=== PATIENT | male | born 1970 | race Caucasian/White ===

== ENCOUNTER → 2020-04-22 | Outpatient (CLI) | payer OTHER ==
[~2020-04-22] MED LIST: NORCO 10-325 T1 EACH PO; NORVASC5 MG PO; OXYBUTYNIN CHLOR5 MG PO; TYLENOL # 31 EA PO
== END ==
LOC: RAD 17:10
PROVIDERS: ATTEND Internal Medicine Gastroenterology
DX: K59.00 Constipation, unspecified (principal); N20.0 Calculus of kidney
CPT/HCPCS: 74018

== ENCOUNTER → 2020-05-04 | Day surgery (SDC) | payer OTHER ==
[~2020-05-04] MED LIST changes: +HYOSCYAMINE SULFATE 0.5 MG/ML INJ ONE; +LOSARTAN POTASS50 MG PO; +MOTEGRITY PO; +ULTRAM50 MG PO
[2020-05-04 15:55] VITALS: BP 113/73
== END | disposition home or self-care (01) ==
LOC: OR 12:22
PROVIDERS: ATTEND Internal Medicine Gastroenterology
DX: K58.1 Irritable bowel syndrome with constipation (principal); K63.5 Polyp of colon; D18.03 Hemangioma of intra-abdominal structures; K64.8 Other hemorrhoids; K59.09 Other constipation; I10 Essential (primary) hypertension; M54.9 Dorsalgia, unspecified; E78.5 Hyperlipidemia, unspecified; N20.0 Calculus of kidney; F17.290 Nicotine dependence, other tobacco product, uncomplicated; Z01.810 Encounter for preprocedural cardiovascular examination; Z01.812 Encounter for preprocedural laboratory examination; Z20.822 Contact with and (suspected) exposure to COVID-19; Z68.36 Body mass index [BMI] 36.0-36.9, adult
CPT/HCPCS: 45380; 45384; 93005; J1980; U0002

== ENCOUNTER 2020-05-06 04:00 | Emergency (ER) | payer OTHER ==
[~2020-05-06] VITALS: Ht 175.3 cm; Wt 102.1 kg
[~2020-05-06 04:00] MED LIST changes: -HYOSCYAMINE SULFATE 0.5 MG/ML INJ ONE; -ULTRAM50 MG PO
[2020-05-06 04:45] LABS: BASOPHILS % 0.6 % (0.0-1.0); EOSINOPHILS # (AUTO) 0.4 (0.0-0.4); EOSINOPHILS % 5.4 % (0.0-6.0); HEMATOCRIT 44.9 % (38.2-49.6); HEMOGLOBIN 14.9 g/dL (14.0-18.0); LYMPHOCYTES # (AUTO) 2.9 (1.0-3.2); LYMPHOCYTES % 45.2 % (18.0-39.1); MEAN CORPUSCULAR HEMOGLOBIN 29.7 pg (28-32); MEAN CORPUSCULAR HGB CONC 33.2 g/dL (31-35); MEAN CORPUSCULAR VOLUME 89.4 fL (81-99); MONOCYTES # (AUTO) 0.5 (0.2-0.8); MONOCYTES % 6.9 % (4.4-11.3); NEUTROPHILS # (AUTO) 2.7 (2.1-6.9); NEUTROPHILS % 41.7 % (38.7-80.0); PLATELET COUNT 278 x10e3/uL (140-360); RED BLOOD COUNT 5.02 x10e6/uL (4.3-5.7); RED CELL DISTRIBUTION WIDTH 12.3 % (11.7-14.4)
[2020-05-06 04:46] LABS: CLARITY,URINE CLEAR (CLEAR); COLOR,URINE YELLOW (YELLOW); KETONES,URINE NEGATIVE (NEGATIVE); LEUKOCYTE ESTERASE ,URINE NEGATIVE (NEGATIVE); NITRITE,URINE NEGATIVE (NEGATIVE); PROTEIN,URINE DIPSTICK NEGATIVE (NEGATIVE); URINE UROBILINOGEN 0.2 mg/dL (0.2 - 1)
[2020-05-06] MEDS ORDERED: DIATRIZOATE MEGL/DIATRIZOA SOD 30 ML BTL PO ONE (04:55)
[2020-05-06 04:57] LABS: BACTERIA,URINE FEW /HPF; EPITHELIAL CELLS,URINE RARE /LPF; WBC,URINE (MAN) 0-5 /HPF (0-5)
[2020-05-06 05:00] LABS: AMYLASE 48 U/L (25-125); LIPASE 42 U/L (8-78)
[2020-05-06 05:02] LABS: ALANINE AMINOTRANSFERASE 43 IU/L (0-55); ALBUMIN 3.9 g/dL (3.5-5.0); ALBUMIN/GLOBULIN RATIO 1.2 (0.8-2.0); ALKALINE PHOSPHATASE 74 IU/L (40-150); BLOOD UREA NITROGEN 16 mg/dL (7-26); BUN/CREATININE RATIO 16 (6-25); CALCIUM 9.2 mg/dL (8.4-10.2); CARBON DIOXIDE 25 mmol/L (22-29); CHLORIDE 106 mmol/L (98-107); EST GLOMERULAR FILTRATION RATE > 60 ML/MIN (60-); GLUCOSE 116 mg/dL (74-118); SODIUM 141 mmol/L (136-145)
[2020-05-06] MEDS ORDERED: SODIUM CHLORIDE 0.9% 50ML 50 ML ONE (05:20)
[2020-05-06] MEDS ORDERED: IOPAMIDOL 370 MG/ML 200 ML INFUS..BTL INJ ONE (05:21)
[2020-05-06] MEDS ORDERED: ULTRAM50 MG PO ×2 (05:55→06:07)
[2020-05-06 06:17] VITALS: BP 131/86
== END 2020-05-06 06:16 | disposition home or self-care (01) ==
LOC: ER 04:25
DX: R10.33 Periumbilical pain (principal); R16.0 Hepatomegaly, not elsewhere classified; N20.0 Calculus of kidney; I10 Essential (primary) hypertension; M19.90 Unspecified osteoarthritis, unspecified site
CPT/HCPCS: 36415; 74177; 80053; 81001; 82150; 83690; 85025; 99284; Q9967

== ENCOUNTER 2024-04-15 17:45 | Inpatient (IN) | payer BC ==
[~2024-04-15] VITALS: Ht 172.7 cm; Wt 104.3 kg
[2024-04-15] VITALS (9 sets, daily range): BP systolic 153–173; BP diastolic 98–117; PULSE 81–88; RESP 16–18; TEMP 98.1–98.2; O2SAT 97–100
[~2024-04-15 17:45] MED LIST changes: +ULTRAM50 MG PO
[2024-04-15 18:12] LABS: BASOPHILS % 0.3 % (0.0-1.0); EOSINOPHILS # (AUTO) 0.3 (0.0-0.4); EOSINOPHILS % 4.1 % (0.0-6.0); HEMATOCRIT 46.6 % (38.2-49.6); LYMPHOCYTES # (AUTO) 1.5 (1.0-3.2); LYMPHOCYTES % 23.3 % (18.0-39.1); MEAN CORPUSCULAR HEMOGLOBIN 29.9 pg (28-32); MEAN CORPUSCULAR HGB CONC 32.2 g/dL (31-35); MONOCYTES # (AUTO) 0.5 (0.2-0.8); MONOCYTES % 8.2 % (4.4-11.3); NEUTROPHILS # (AUTO) 4.1 (2.1-6.9); NEUTROPHILS % 63.8 % (38.7-80.0); PLATELET COUNT 228 x10e3/uL (140-360); RED BLOOD COUNT 5.01 x10e6/uL (4.3-5.7); RED CELL DISTRIBUTION WIDTH 11.6 % (11.7-14.4); WHITE BLOOD COUNT 6.35 x10e3/uL (4.8-10.8)
[2024-04-15] MEDS: SODIUM CHLORIDE 0.9% 1000ML 1,000 ML IV STA (18:13)
[2024-04-15] MEDS: ONDANSETRON HCL INJ 2MG/ML 2ML 2 MG/ML VIAL IV STA (18:14)
[2024-04-15] MEDS: KETOROLAC TROMETHAMINE 30 MG/ML VIAL IV STA (18:14)
[2024-04-15 18:18] LABS: BILIRUBIN,URINE NEGATIVE (NEGATIVE); CLARITY,URINE CLEAR (CLEAR); COLOR,URINE YELLOW (YELLOW); GLUCOSE, URINE 500 (NEGATIVE); KETONES,URINE NEGATIVE (NEGATIVE); LEUKOCYTE ESTERASE ,URINE NEGATIVE (NEGATIVE); NITRITE,URINE NEGATIVE (NEGATIVE); PH,URINE 5.5 (5 - 7); PROTEIN,URINE DIPSTICK 1+ (NEGATIVE); URINE UROBILINOGEN 0.2 mg/dL (0.2 - 1)
[2024-04-15 18:35] LABS: BACTERIA,URINE FEW /HPF; EPITHELIAL CELLS,URINE FEW /LPF; RBC,URINE 0-5 /HPF (0-5); WBC,URINE (MAN) 0-5 /HPF (0-5)
[2024-04-15 19:03] LABS: ALBUMIN 3.8 g/dL (3.5-5.0); ANION GAP 15.8 mmol/L (8-16); BILIRUBIN,TOTAL 2.1 mg/dL (0.2-1.2); CREATININE, SERUM 1.8 mg/dL (0.72-1.25); POTASSIUM 3.8 mmol/L (3.5-5.1); TOTAL PROTEIN 7.7 g/dL (6.5-8.1)
[2024-04-15] MEDS: Morphine 4mg INJECTION 4 MG/ML INJ IV PRN (19:15)
[2024-04-15] MEDS ORDERED: DEXTROSE 50% SYRINGE 50 ML IV PRN (19:15)
[2024-04-15] MEDS: SODIUM CHLORIDE 0.9% 1000ML 1,000 ML IV SCH (20:49)
[2024-04-15] MEDS: INSULIN REGULAR, HUMAN 100 UNIT/1 ML SQ SCH (20:54)
[2024-04-15] MEDS: HYDRALAZINE HCL 20 MG/ML VIAL IV PRN (23:24)
[2024-04-16] VITALS (8 sets, daily range): BP systolic 146–171; BP diastolic 94–101; PULSE 87–99; RESP 18–20; TEMP 97.5–98.3; O2SAT 94–98
[2024-04-16] MEDS: ONDANSETRON HCL INJ 2MG/ML 2ML 2 MG/ML VIAL IV PRN (03:19)
[2024-04-16] MEDS: KETOROLAC TROMETHAMINE 30 MG/ML VIAL IV PRN (03:26)
[2024-04-16 06:18] LABS: BASOPHILS % 0.3 % (0.0-1.0); EOSINOPHILS # (AUTO) 0.1 (0.0-0.4); EOSINOPHILS % 1.9 % (0.0-6.0); HEMATOCRIT 42.5 % (38.2-49.6); HEMOGLOBIN 14.2 g/dL (14.0-18.0); LYMPHOCYTES % 13.7 % (18.0-39.1); MEAN CORPUSCULAR HEMOGLOBIN 29.5 pg (28-32); MEAN CORPUSCULAR HGB CONC 33.4 g/dL (31-35); MEAN CORPUSCULAR VOLUME 88.2 fL (81-99); MONOCYTES # (AUTO) 0.5 (0.2-0.8); MONOCYTES % 6.2 % (4.4-11.3); NEUTROPHILS # (AUTO) 5.6 (2.1-6.9); NEUTROPHILS % 77.5 % (38.7-80.0); PLATELET COUNT 226 x10e3/uL (140-360); RED BLOOD COUNT 4.82 x10e6/uL (4.3-5.7); RED CELL DISTRIBUTION WIDTH 11.8 % (11.7-14.4); WHITE BLOOD COUNT 7.28 x10e3/uL (4.8-10.8)
[2024-04-16 06:47] LABS: ALBUMIN 3.4 g/dL (3.5-5.0); ALBUMIN/GLOBULIN RATIO 0.9 (0.8-2.0); BILIRUBIN,TOTAL 1.8 mg/dL (0.2-1.2); CALCIUM 9.4 mg/dL (8.4-10.2); CREATININE, SERUM 1.53 mg/dL (0.72-1.25)
[2024-04-16] MEDS ORDERED: PROPOFOL IV EMULSION 10 MG/ML 20 ML VIAL ONE (13:47)
[2024-04-16] MEDS ORDERED: SEVOFLURANE INHAL SOLN 250 ML PEN BTL ONE (13:47)
[2024-04-16] MEDS ORDERED: FENTANYL CITRATE/PF 100MCG/2 ML INJ ONE ×2 (13:47→15:32)
[2024-04-16] MEDS ORDERED: ACETAMINOPHEN 1000 MG/100 ML 100 ML IV ONE (13:47)
[2024-04-16] MEDS ORDERED: LIDOCAINE HCL 2% LOCAL INJ 5 ML SDV VIAL INJ ONE (13:47)
[2024-04-16] MEDS ORDERED: MIDAZOLAM HCL 2 MG/2 ML VIAL ONE (13:48)
[2024-04-16] MEDS ORDERED: DEXAMETHASONE SOD PHOS INJ 4 MG/ML SDV ONE (14:37)
[2024-04-16] MEDS ORDERED: ONDANSETRON HCL INJ 2MG/ML 2ML 2 MG/ML VIAL ONE (14:37)
[2024-04-16] MEDS ORDERED: GENTAMICIN SULFATE 40 MG/ML 2 ML VIAL ONE (14:43)
[2024-04-16] MEDS ORDERED: DIPHENHYDRAMINE HCL 25 MG CAP PO PRN (15:45)
[2024-04-16] MEDS ORDERED: ACETAMINOPHEN 1000 MG/100 ML IV PRN (15:45)
[2024-04-16] MEDS ORDERED: ONDANSETRON HCL INJ 2MG/ML 2ML 2 MG/ML VIAL IV PRN (15:45)
[2024-04-16] MEDS: SODIUM CHLORIDE 0.9% 1000ML 1,000 ML IV SCH (15:45)
[2024-04-16] MEDS: FENTANYL CITRATE/PF 100MCG/2 ML INJ ONE (17:00)
[2024-04-16] MEDS: PHENAZOPYRIDINE HCL 100 MG TAB PO PRN (17:22)
[2024-04-16] MEDS: ACETAMINOPHEN/CODEINE 300MG - 30MG TAB PO PRN (18:16)
[2024-04-17] VITALS (11 sets, daily range): BP systolic 123–164; BP diastolic 78–96; PULSE 74–89; RESP 18; TEMP 97.5–98.4; O2SAT 93–99
[2024-04-17 06:10] LABS: EOSINOPHILS % 0.3 % (0.0-6.0); HEMATOCRIT 42.1 % (38.2-49.6); HEMOGLOBIN 13.2 g/dL (14.0-18.0); LYMPHOCYTES # (AUTO) 0.8 (1.0-3.2); LYMPHOCYTES % 12.7 % (18.0-39.1); MEAN CORPUSCULAR HEMOGLOBIN 29.7 pg (28-32); MEAN CORPUSCULAR HGB CONC 31.4 g/dL (31-35); MEAN CORPUSCULAR VOLUME 94.6 fL (81-99); MONOCYTES # (AUTO) 0.3 (0.2-0.8); MONOCYTES % 4.2 % (4.4-11.3); NEUTROPHILS # (AUTO) 4.9 (2.1-6.9); NEUTROPHILS % 82.5 % (38.7-80.0); PLATELET COUNT 239 x10e3/uL (140-360); RED BLOOD COUNT 4.45 x10e6/uL (4.3-5.7); RED CELL DISTRIBUTION WIDTH 11.6 % (11.7-14.4)
[2024-04-17 06:32] LABS: ANION GAP 13.5 mmol/L (8-16); CALCIUM 9.6 mg/dL (8.4-10.2); CREATININE, SERUM 1.15 mg/dL (0.72-1.25); POTASSIUM 4.5 mmol/L (3.5-5.1); URIC ACID 5.9 mg/dL (4.8-8.0)
[2024-04-17] MEDS: SOLIFENACIN SUCCINATE 5 MG TAB PO SCH (08:43)
[2024-04-17] MEDS: DOCUSATE SODIUM 100 MG CAP PO PRN (15:22)
[2024-04-18] VITALS (12 sets, daily range): BP systolic 134–162; BP diastolic 87–97; PULSE 67–87; RESP 18–20; TEMP 97.4–98.4; O2SAT 95–99
[2024-04-18 06:21] LABS: BASOPHILS % 0.3 % (0.0-1.0); EOSINOPHILS # (AUTO) 0.2 (0.0-0.4); EOSINOPHILS % 2.6 % (0.0-6.0); HEMATOCRIT 38.9 % (38.2-49.6); HEMOGLOBIN 12.8 g/dL (14.0-18.0); LYMPHOCYTES # (AUTO) 2.2 (1.0-3.2); LYMPHOCYTES % 35.7 % (18.0-39.1); MEAN CORPUSCULAR HEMOGLOBIN 29.8 pg (28-32); MEAN CORPUSCULAR HGB CONC 32.9 g/dL (31-35); MEAN CORPUSCULAR VOLUME 90.7 fL (81-99); MONOCYTES # (AUTO) 0.5 (0.2-0.8); MONOCYTES % 8.4 % (4.4-11.3); NEUTROPHILS # (AUTO) 3.3 (2.1-6.9); NEUTROPHILS % 52.8 % (38.7-80.0); PLATELET COUNT 260 x10e3/uL (140-360); RED BLOOD COUNT 4.29 x10e6/uL (4.3-5.7); WHITE BLOOD COUNT 6.22 x10e3/uL (4.8-10.8)
[2024-04-18 06:50] LABS: ANION GAP 13.9 mmol/L (8-16); CALCIUM 9.3 mg/dL (8.4-10.2); CREATININE, SERUM 1.08 mg/dL (0.72-1.25); POTASSIUM 3.9 mmol/L (3.5-5.1)
[2024-04-18] MEDS: LOSARTAN POTASSIUM 100 MG TAB PO SCH (08:41)
[2024-04-18 10:12] LABS: CALCIUM 9.3 mg/dL (8.7-10.2)
[2024-04-19] VITALS (9 sets, daily range): BP systolic 150–194; BP diastolic 89–114; PULSE 64–82; RESP 15–20; TEMP 97.5–98.1; O2SAT 96–98
[2024-04-19 06:11] LABS: BASOPHILS % 0.5 % (0.0-1.0); EOSINOPHILS # (AUTO) 0.2 (0.0-0.4); EOSINOPHILS % 3.4 % (0.0-6.0); HEMATOCRIT 40.2 % (38.2-49.6); HEMOGLOBIN 13.3 g/dL (14.0-18.0); LYMPHOCYTES # (AUTO) 2.2 (1.0-3.2); LYMPHOCYTES % 38.9 % (18.0-39.1); MEAN CORPUSCULAR HEMOGLOBIN 29.7 pg (28-32); MEAN CORPUSCULAR HGB CONC 33.1 g/dL (31-35); MEAN CORPUSCULAR VOLUME 89.7 fL (81-99); MONOCYTES # (AUTO) 0.4 (0.2-0.8); MONOCYTES % 6.5 % (4.4-11.3); NEUTROPHILS # (AUTO) 2.8 (2.1-6.9); NEUTROPHILS % 50.5 % (38.7-80.0); PLATELET COUNT 275 x10e3/uL (140-360); RED BLOOD COUNT 4.48 x10e6/uL (4.3-5.7); RED CELL DISTRIBUTION WIDTH 11.9 % (11.7-14.4); WHITE BLOOD COUNT 5.53 x10e3/uL (4.8-10.8)
[2024-04-19 06:37] LABS: ANION GAP 14.1 mmol/L (8-16); CALCIUM 9.5 mg/dL (8.4-10.2); CREATININE, SERUM 0.89 mg/dL (0.72-1.25); POTASSIUM 4.1 mmol/L (3.5-5.1)
[2024-04-20] VITALS (9 sets, daily range): BP systolic 134–161; BP diastolic 81–114; PULSE 74–81; RESP 18–21; TEMP 97.5–97.9; O2SAT 95–99
[2024-04-20 06:30] LABS: BASOPHILS % 0.5 % (0.0-1.0); EOSINOPHILS # (AUTO) 0.2 (0.0-0.4); EOSINOPHILS % 3.7 % (0.0-6.0); HEMATOCRIT 44.1 % (38.2-49.6); HEMOGLOBIN 14.1 g/dL (14.0-18.0); LYMPHOCYTES # (AUTO) 2.3 (1.0-3.2); LYMPHOCYTES % 37.4 % (18.0-39.1); MEAN CORPUSCULAR HEMOGLOBIN 29.7 pg (28-32); MEAN CORPUSCULAR VOLUME 92.8 fL (81-99); MONOCYTES # (AUTO) 0.4 (0.2-0.8); MONOCYTES % 6.1 % (4.4-11.3); NEUTROPHILS # (AUTO) 3.3 (2.1-6.9); NEUTROPHILS % 52.1 % (38.7-80.0); PLATELET COUNT 306 x10e3/uL (140-360); RED BLOOD COUNT 4.75 x10e6/uL (4.3-5.7); RED CELL DISTRIBUTION WIDTH 11.5 % (11.7-14.4); WHITE BLOOD COUNT 6.26 x10e3/uL (4.8-10.8)
[2024-04-20 06:52] LABS: ANION GAP 14.8 mmol/L (8-16); CALCIUM 9.8 mg/dL (8.4-10.2); CREATININE, SERUM 0.87 mg/dL (0.72-1.25); POTASSIUM 3.8 mmol/L (3.5-5.1)
[2024-04-20] MEDS: METFORMIN HCL 500 MG TAB PO SCH (08:35)
[2024-04-21 07:58] VITALS: BP 143/97; PULSE 79; RESP 18; TEMP 97.6; O2SAT 96
[2024-04-21 09:00] VITALS: BP 143/97; PULSE 79; RESP 18; TEMP 97.6; O2SAT 96
[2024-04-21 09:01] VITALS: PULSE 75; RESP 18; O2SAT 96
[2024-04-21 11:11] VITALS: BP 154/92; PULSE 82; RESP 18; TEMP 98.5; O2SAT 98
[2024-04-21] MEDS ORDERED: ACETAMINOPHEN-1 EAC4 PO (12:22)
[2024-04-21] MEDS ORDERED: VESICARE5 MG PO (12:22)
[2024-04-21] MEDS ORDERED: METFORMIN HCL500 MG PO (12:22)
== END 2024-04-21 14:30 | disposition home or self-care (01) | DRG 661 ==
LOC: ER 17:52 → ERHOLD 18:14 → MED/SURG3 20:07
PROVIDERS: ADMIT Internal Medicine; ATTEND Internal Medicine
PROC: 0TF6XZZ Fragmentation in Right Ureter, External Approach (ICD-10-PCS; 2024-04-16)
PROC: BT141ZZ Fluoroscopy of Kidneys, Ureters and Bladder using Low Osmolar Contrast (ICD-10-PCS; 2024-04-16)
PROC: 0T788DZ Dilation of Bilateral Ureters with Intraluminal Device, Via Natural or Artificial Opening Endoscopic (ICD-10-PCS; principal; 2024-04-16 14:32)
PROC: 0T7D8ZZ Dilation of Urethra, Via Natural or Artificial Opening Endoscopic (ICD-10-PCS; 2024-04-16 14:32)
DX: N13.2 Hydronephrosis with renal and ureteral calculous obstruction (principal); N17.9 Acute kidney failure, unspecified; E11.65 Type 2 diabetes mellitus with hyperglycemia; R53.81 Other malaise; M54.9 Dorsalgia, unspecified; I10 Essential (primary) hypertension; R31.0 Gross hematuria; N23 Unspecified renal colic; N35.919 Unspecified urethral stricture, male, unspecified site; E66.9 Obesity, unspecified; Z68.35 Body mass index [BMI] 35.0-35.9, adult; Z79.84 Long term (current) use of oral hypoglycemic drugs; F17.200 Nicotine dependence, unspecified, uncomplicated
CPT/HCPCS: 36415; 50590; 74018; 80048; 80053; 81001; 82948; 83036; 83690; 83970; 84550; 85025; 88300; 94799; 99284; C1758; C2617; J0360; J0696; J1100; J1580; J1885; J2003; J2250; J2270; J2405; J7030

== ENCOUNTER → 2024-05-16 | Day surgery (SDC) | payer BC ==
[~2024-05-16] MED LIST changes: +ACETAMINOPHEN 1000 MG/100 ML 100 ML IV ONE; +ACETAMINOPHEN-1 EAC4 PO; +AZO1 EACH PO; +B12 PO; +CIPRO250 MG PO; +CIPRO500 MG PO; +DEXAMETHASONE SOD PHOS INJ 4 MG/ML SDV ONE; +DEXMEDETOMIDINE HCL 2 ML ONE; +FAMOTIDINE 20 MG/2 ML VIAL IV ONE; +FENTANYL CITRATE/PF 100MCG/2 ML INJ ONE; +FLOMAX0.4 MG PO; +HYDROCODONE PO; +LIDOCAINE HCL 2% LOCAL INJ 5 ML SDV VIAL INJ ONE; +METFORMIN HCL500 MG PO; +MIDAZOLAM HCL 2 MG/2 ML VIAL ONE; +PROPOFOL IV EMULSION 10 MG/ML 20 ML VIAL ONE; +RIFAMPIN300 MG PO; +SENNA S TABLET1 EACH PO; +SEVOFLURANE INHAL SOLN 250 ML PEN BTL ONE; +SODIUM CHLORIDE 0.9% 100 ML ONE; +SUPER COLON CLEANSE PO; +TYLENOL #3 PO; +VESICARE5 MG PO; +[UNRECOGNIZED DRUG - OTHER] PO
[2024-05-16] MEDS: LACTATED RINGER'S 1,000 ML ONE (08:10)
[2024-05-16] MEDS: GENTAMICIN 80MG/NS 100 ML 200 ML IV ONE (08:11)
[2024-05-16] MEDS: CEFTRIAXONE 1 GM VIAL ONE (08:11)
[2024-05-16 09:18] LABS: ANION GAP 14.9 mmol/L (8-16); CALCIUM 9.8 mg/dL (8.4-10.2); CREATININE, SERUM 1.01 mg/dL (0.72-1.25); POTASSIUM 3.9 mmol/L (3.5-5.1)
[2024-05-16 09:22] LABS: BASOPHILS % 0.3 % (0.0-1.0); EOSINOPHILS # (AUTO) 0.3 (0.0-0.4); EOSINOPHILS % 4.5 % (0.0-6.0); HEMATOCRIT 44.6 % (38.2-49.6); HEMOGLOBIN 15.2 g/dL (14.0-18.0); LYMPHOCYTES # (AUTO) 2.7 (1.0-3.2); LYMPHOCYTES % 44.6 % (18.0-39.1); MEAN CORPUSCULAR HGB CONC 34.1 g/dL (31-35); MONOCYTES # (AUTO) 0.4 (0.2-0.8); MONOCYTES % 6.5 % (4.4-11.3); NEUTROPHILS # (AUTO) 2.7 (2.1-6.9); NEUTROPHILS % 43.9 % (38.7-80.0); PLATELET COUNT 292 x10e3/uL (140-360); RED BLOOD COUNT 5.25 x10e6/uL (4.3-5.7); RED CELL DISTRIBUTION WIDTH 12.2 % (11.7-14.4); WHITE BLOOD COUNT 6.03 x10e3/uL (4.8-10.8)
[2024-05-16] MEDS: FENTANYL CITRATE/PF 100MCG/2 ML INJ ONE (09:47)
[2024-05-16] MEDS: PHENAZOPYRIDINE HCL 100 MG TAB ONE ×2 (14:50)
[2024-05-16 15:26] VITALS: BP 132/82; PULSE 76; RESP 17; O2SAT 96
[2024-05-16] MEDS: ACETAMINOPHEN/CODEINE 300MG - 30MG TAB ONE (15:40)
== END | disposition home or self-care (01) ==
LOC: OR 07:30
PROVIDERS: ATTEND Urology
DX: N20.0 Calculus of kidney (principal); N35.812 Other bulbous urethral stricture, male; N40.0 Benign prostatic hyperplasia without lower urinary tract symptoms; Z96.0 Presence of urogenital implants; E66.9 Obesity, unspecified; G89.29 Other chronic pain; Z79.84 Long term (current) use of oral hypoglycemic drugs
CPT/HCPCS: 36415; 50590; 52356; 74018; 80048; 84550; 85025; 93005; C1769; C2617; J0131; J0696; J1100; J1580; J2003; J2704; J3010; J7050; J7121; J2250

== ENCOUNTER → 2024-06-06 | Day surgery (SDC) | payer BC ==
[2024-06-05 11:57] LABS: BASOPHILS % 0.4 % (0.0-1.0); EOSINOPHILS # (AUTO) 0.3 (0.0-0.4); EOSINOPHILS % 5.1 % (0.0-6.0); HEMATOCRIT 41.1 % (38.2-49.6); HEMOGLOBIN 14.5 g/dL (14.0-18.0); LYMPHOCYTES # (AUTO) 1.9 (1.0-3.2); LYMPHOCYTES % 36.8 % (18.0-39.1); MEAN CORPUSCULAR HEMOGLOBIN 29.8 pg (28-32); MEAN CORPUSCULAR HGB CONC 35.3 g/dL (31-35); MEAN CORPUSCULAR VOLUME 84.4 fL (81-99); MONOCYTES # (AUTO) 0.3 (0.2-0.8); MONOCYTES % 5.9 % (4.4-11.3); NEUTROPHILS # (AUTO) 2.6 (2.1-6.9); NEUTROPHILS % 51.6 % (38.7-80.0); PLATELET COUNT 264 x10e3/uL (140-360); RED BLOOD COUNT 4.87 x10e6/uL (4.3-5.7); RED CELL DISTRIBUTION WIDTH 12.2 % (11.7-14.4); WHITE BLOOD COUNT 5.08 x10e3/uL (4.8-10.8)
[2024-06-05 12:28] LABS: ANION GAP 14.1 mmol/L (8-16); CALCIUM 9.5 mg/dL (8.4-10.2); CREATININE, SERUM 0.99 mg/dL (0.72-1.25); POTASSIUM 4.1 mmol/L (3.5-5.1)
[~2024-06-06] MED LIST changes: +DEXAMETHASONE SOD PHOS 10 MG/1 ML VIAL ONE; -DEXMEDETOMIDINE HCL 2 ML ONE; +DEXMEDETOMIDINE HCL 200 MCG/2 ML VIAL ONE; -FAMOTIDINE 20 MG/2 ML VIAL IV ONE; +ONDANSETRON HCL INJ 2MG/ML 2ML 2 MG/ML VIAL ONE; -SODIUM CHLORIDE 0.9% 100 ML ONE
[2024-06-06] MEDS: LACTATED RINGER'S 1,000 ML ONE (10:29)
[2024-06-06] MEDS: GENTAMICIN 80MG/NS 100 ML 200 ML IV ONE (10:30)
[2024-06-06] MEDS: CEFTRIAXONE 1 GM VIAL ONE (10:31)
[2024-06-06] MEDS: KETOROLAC TROMETHAMINE 30 MG/ML VIAL ONE (10:50)
[2024-06-06] MEDS: PHENAZOPYRIDINE HCL 100 MG TAB ONE (16:06)
[2024-06-06 16:20] VITALS: BP 149/87; PULSE 84; RESP 17; O2SAT 97
[2024-06-06] MEDS: ACETAMINOPHEN/CODEINE 300MG - 30MG TAB ONE (16:26)
== END | disposition home or self-care (01) ==
LOC: OR 09:37
PROVIDERS: ATTEND Urology
DX: N20.0 Calculus of kidney (principal); Z46.6 Encounter for fitting and adjustment of urinary device; N35.812 Other bulbous urethral stricture, male; N13.30 Unspecified hydronephrosis; N40.1 Benign prostatic hyperplasia with lower urinary tract symptoms; R35.1 Nocturia; N28.89 Other specified disorders of kidney and ureter; G89.29 Other chronic pain; M19.90 Unspecified osteoarthritis, unspecified site; Z01.812 Encounter for preprocedural laboratory examination; Z01.818 Encounter for other preprocedural examination; Z79.84 Long term (current) use of oral hypoglycemic drugs; Z79.2 Long term (current) use of antibiotics; Z87.891 Personal history of nicotine dependence; Z80.52 Family history of malignant neoplasm of bladder; Z84.1 Family history of disorders of kidney and ureter
CPT/HCPCS: 36415; 52332; 52352; 74018; 74420; 80048; 84550; 85025; 88300; C1766; C1769; C2617; J0131; J0696; J1100; J1580; J1885; J2003; J2250; J2405; J2704; J3010; J7121

== ENCOUNTER 2024-06-23 10:44 | Observation (INO) | payer BC ==
[2024-06-23] VITALS (7 sets, daily range): BP systolic 149–152; BP diastolic 88–90; PULSE 72–88; RESP 16–18; TEMP 97.5–207.7; O2SAT 99
[~2024-06-23] VITALS: Ht 175.3 cm; Wt 106.1 kg
[~2024-06-23 10:44] MED LIST changes: -ACETAMINOPHEN 1000 MG/100 ML 100 ML IV ONE; -AZO1 EACH PO; -CIPRO500 MG PO; -DEXAMETHASONE SOD PHOS 10 MG/1 ML VIAL ONE; -DEXAMETHASONE SOD PHOS INJ 4 MG/ML SDV ONE; -DEXMEDETOMIDINE HCL 200 MCG/2 ML VIAL ONE; -FENTANYL CITRATE/PF 100MCG/2 ML INJ ONE; -FLOMAX0.4 MG PO; -LIDOCAINE HCL 2% LOCAL INJ 5 ML SDV VIAL INJ ONE; -MIDAZOLAM HCL 2 MG/2 ML VIAL ONE; -ONDANSETRON HCL INJ 2MG/ML 2ML 2 MG/ML VIAL ONE; -PROPOFOL IV EMULSION 10 MG/ML 20 ML VIAL ONE; -RIFAMPIN300 MG PO; -SENNA S TABLET1 EACH PO; -SEVOFLURANE INHAL SOLN 250 ML PEN BTL ONE; -SUPER COLON CLEANSE PO; -TYLENOL #3 PO
[2024-06-23] MEDS: ONDANSETRON HCL INJ 2MG/ML 2ML 2 MG/ML VIAL IV STA (11:08)
[2024-06-23] MEDS: SODIUM CHLORIDE 0.9% 1000ML 1,000 ML IV STA (11:08)
[2024-06-23] MEDS: KETOROLAC TROMETHAMINE 30 MG/ML VIAL IV STA (11:08)
[2024-06-23 11:24] LABS: BASOPHILS % 0.4 % (0.0-1.0); EOSINOPHILS # (AUTO) 0.2 (0.0-0.4); EOSINOPHILS % 3.1 % (0.0-6.0); HEMATOCRIT 40.4 % (38.2-49.6); HEMOGLOBIN 14.1 g/dL (14.0-18.0); LYMPHOCYTES # (AUTO) 1.6 (1.0-3.2); LYMPHOCYTES % 30.8 % (18.0-39.1); MEAN CORPUSCULAR HEMOGLOBIN 29.4 pg (28-32); MEAN CORPUSCULAR HGB CONC 34.9 g/dL (31-35); MEAN CORPUSCULAR VOLUME 84.3 fL (81-99); MONOCYTES # (AUTO) 0.4 (0.2-0.8); MONOCYTES % 8.5 % (4.4-11.3); NEUTROPHILS # (AUTO) 2.9 (2.1-6.9); PLATELET COUNT 248 x10e3/uL (140-360); RED BLOOD COUNT 4.79 x10e6/uL (4.3-5.7); RED CELL DISTRIBUTION WIDTH 12.2 % (11.7-14.4); WHITE BLOOD COUNT 5.16 x10e3/uL (4.8-10.8)
[2024-06-23 11:44] LABS: BILIRUBIN,URINE NEGATIVE (NEGATIVE); CLARITY,URINE CLEAR (CLEAR); COLOR,URINE YELLOW (YELLOW); GLUCOSE, URINE 500 (NEGATIVE); KETONES,URINE NEGATIVE (NEGATIVE); LEUKOCYTE ESTERASE ,URINE NEGATIVE (NEGATIVE); NITRITE,URINE NEGATIVE (NEGATIVE); PH,URINE 5.5 (5 - 7); PROTEIN,URINE DIPSTICK NEGATIVE (NEGATIVE); URINE UROBILINOGEN 0.2 mg/dL (0.2 - 1)
[2024-06-23 11:53] LABS: ALBUMIN 3.6 g/dL (3.5-5.0); ALBUMIN/GLOBULIN RATIO 0.9 (0.8-2.0); ANION GAP 15.8 mmol/L (8-16); BILIRUBIN,TOTAL 1.3 mg/dL (0.2-1.2); CALCIUM 9.7 mg/dL (8.4-10.2); CREATININE, SERUM 1.14 mg/dL (0.72-1.25); POTASSIUM 3.8 mmol/L (3.5-5.1); TOTAL PROTEIN 7.8 g/dL (6.5-8.1)
[2024-06-23 12:05] LABS: BACTERIA,URINE MODERATE /HPF; EPITHELIAL CELLS,URINE MODERATE /LPF; WBC,URINE (MAN) 21-50 /HPF (0-5)
[2024-06-23] MEDS ORDERED: TYLENOL #3 PO (18:17)
[2024-06-23] MEDS ORDERED: FLOMAX0.4 MG PO (18:17)
[2024-06-23] MEDS ORDERED: SUPER COLON CLEANSE PO (18:20)
[2024-06-23] MEDS ORDERED: AZO1 EACH PO (18:20)
[2024-06-23] MEDS: Morphine 2mg Syringe 2 MG/ML SYR IV PRN (18:27)
[2024-06-23] MEDS: ONDANSETRON HCL INJ 2MG/ML 2ML 2 MG/ML VIAL IV PRN (18:27)
[2024-06-23 21:13] LABS: TROPONIN I 0.006 ng/mL (0-0.300)
[2024-06-23 23:26] LABS: TROPONIN I 0.004 ng/mL (0-0.300)
[2024-06-24] VITALS: BP 133/82; PULSE 73; RESP 20; TEMP 97.8; O2SAT 96
[2024-06-24 04:00] VITALS: BP 138/98; PULSE 76; RESP 20; TEMP 98.1; O2SAT 98
[2024-06-24 05:21] LABS: BASOPHILS % 0.2 % (0.0-1.0); EOSINOPHILS # (AUTO) 0.2 (0.0-0.4); EOSINOPHILS % 3.7 % (0.0-6.0); HEMATOCRIT 37.5 % (38.2-49.6); HEMOGLOBIN 12.9 g/dL (14.0-18.0); LYMPHOCYTES # (AUTO) 2.1 (1.0-3.2); LYMPHOCYTES % 39.4 % (18.0-39.1); MEAN CORPUSCULAR HEMOGLOBIN 29.6 pg (28-32); MEAN CORPUSCULAR HGB CONC 34.4 g/dL (31-35); MONOCYTES # (AUTO) 0.5 (0.2-0.8); MONOCYTES % 9.2 % (4.4-11.3); NEUTROPHILS # (AUTO) 2.6 (2.1-6.9); NEUTROPHILS % 47.3 % (38.7-80.0); PLATELET COUNT 234 x10e3/uL (140-360); RED BLOOD COUNT 4.36 x10e6/uL (4.3-5.7); RED CELL DISTRIBUTION WIDTH 12.1 % (11.7-14.4); WHITE BLOOD COUNT 5.41 x10e3/uL (4.8-10.8)
[2024-06-24 05:51] LABS: ALBUMIN 3.4 g/dL (3.5-5.0); ANION GAP 13.8 mmol/L (8-16); BILIRUBIN,TOTAL 1.1 mg/dL (0.2-1.2); CALCIUM 9.4 mg/dL (8.4-10.2); CREATININE, SERUM 0.89 mg/dL (0.72-1.25); POTASSIUM 3.8 mmol/L (3.5-5.1); TOTAL PROTEIN 6.8 g/dL (6.5-8.1)
[2024-06-24 06:13] LABS: TROPONIN I 0.001 ng/mL (0-0.300)
[2024-06-24 08:02] VITALS: BP 158/92; PULSE 79; RESP 19; TEMP 98.5; O2SAT 99
[2024-06-24 08:13] VITALS: BP 158/92; PULSE 79; RESP 19; TEMP 98.5; O2SAT 99
[2024-06-24] MEDS ORDERED: KETOROLAC TROMETHAMINE 30 MG/ML VIAL IM PRN (10:15)
[2024-06-24] MEDS ORDERED: KETOROLAC TROMETHAMINE 30 MG/ML VIAL IV PRN (10:45)
[2024-06-24 11:44] VITALS: BP 148/86; PULSE 78; RESP 19; TEMP 97.9; O2SAT 98
[2024-06-24] MEDS ORDERED: DEXTROSE 50% SYRINGE 50 ML IV PRN (14:15)
[2024-06-24] MEDS ORDERED: MEROPENEM 1 GM in SODIUM CHLORIDE 0.9% 100 ML IV SCH (14:15)
[2024-06-24] MEDS ORDERED: INSULIN REGULAR, HUMAN 100 UNIT/1 ML SQ SCH (16:30)
[2024-06-24] MEDS ORDERED: TAMSULOSIN HCL 0.4 MG CAP PO SCH (17:00)
== END 2024-06-24 15:00 | disposition left against medical advice (07) ==
LOC: ER 10:49 → ERHOLD 14:28 → MED/SURG3 16:37
PROVIDERS: ADMIT Internal Medicine; ATTEND Internal Medicine
DX: R10.811 Right upper quadrant abdominal tenderness (principal); Z87.442 Personal history of urinary calculi; I10 Essential (primary) hypertension
CPT/HCPCS: 36415 ×2; 72148; 74176; 80053 ×2; 81001; 82550 ×2; 83690; 84484 ×2; 85025 ×2; 87086; 87186; 99284; G0378 ×2; J1885; J2185; J2270 ×2; J2405 ×2; J7030; J7050

== ENCOUNTER 2024-06-24 19:57 | Inpatient (IN) | payer BC ==
[~2024-06-24] VITALS: Ht 175.3 cm; Wt 104.3 kg
[~2024-06-24 19:57] MED LIST changes: +AZO1 EACH PO; +FLOMAX0.4 MG PO; +SUPER COLON CLEANSE PO; +TYLENOL #3 PO
[2024-06-24 20:03] VITALS: RESP 20; TEMP 98
[2024-06-24 20:32] LABS: BASOPHILS % 0.2 % (0.0-1.0); EOSINOPHILS # (AUTO) 0.1 (0.0-0.4); EOSINOPHILS % 1.9 % (0.0-6.0); HEMATOCRIT 40.2 % (38.2-49.6); HEMOGLOBIN 14.1 g/dL (14.0-18.0); LYMPHOCYTES # (AUTO) 1.7 (1.0-3.2); LYMPHOCYTES % 35.7 % (18.0-39.1); MEAN CORPUSCULAR HEMOGLOBIN 29.3 pg (28-32); MEAN CORPUSCULAR HGB CONC 35.1 g/dL (31-35); MEAN CORPUSCULAR VOLUME 83.6 fL (81-99); MONOCYTES # (AUTO) 0.4 (0.2-0.8); MONOCYTES % 7.9 % (4.4-11.3); NEUTROPHILS # (AUTO) 2.6 (2.1-6.9); NEUTROPHILS % 54.1 % (38.7-80.0); PLATELET COUNT 304 x10e3/uL (140-360); RED BLOOD COUNT 4.81 x10e6/uL (4.3-5.7); RED CELL DISTRIBUTION WIDTH 11.9 % (11.7-14.4); WHITE BLOOD COUNT 4.79 x10e3/uL (4.8-10.8)
[2024-06-24 20:54] LABS: ALBUMIN/GLOBULIN RATIO 1.2 (0.8-2.0); ANION GAP 14.9 mmol/L (8-16); BILIRUBIN,TOTAL 0.7 mg/dL (0.2-1.2); CALCIUM 9.6 mg/dL (8.4-10.2); POTASSIUM 3.9 mmol/L (3.5-5.1); TOTAL PROTEIN 7.3 g/dL (6.5-8.1)
[2024-06-24 21:41] VITALS: PULSE 84
[2024-06-24] MEDS: KETOROLAC TROMETHAMINE 30 MG/ML VIAL IV PRN (22:04)
[2024-06-24] MEDS: ONDANSETRON HCL INJ 2MG/ML 2ML 2 MG/ML VIAL IV PRN (22:05)
[2024-06-24 22:16] VITALS: BP 133/86; PULSE 82; RESP 17; TEMP 98.4; O2SAT 99
[2024-06-24 22:35] VITALS: BP 133/86; PULSE 82; RESP 17; TEMP 98.4; O2SAT 99
[2024-06-24 22:52] VITALS: BP 133/86; PULSE 82; RESP 17; TEMP 98.4; O2SAT 99
[2024-06-24 22:53] VITALS: BP 133/86; PULSE 82; RESP 17; TEMP 98.4; O2SAT 99
[2024-06-25] VITALS (8 sets, daily range): BP systolic 129–160; BP diastolic 89–106; PULSE 70–83; RESP 16–20; TEMP 97.3–99.1; O2SAT 96–99
[2024-06-25 05:29] LABS: BASOPHILS % 0.4 % (0.0-1.0); EOSINOPHILS # (AUTO) 0.2 (0.0-0.4); EOSINOPHILS % 3.2 % (0.0-6.0); HEMATOCRIT 36.8 % (38.2-49.6); HEMOGLOBIN 12.6 g/dL (14.0-18.0); LYMPHOCYTES # (AUTO) 2.4 (1.0-3.2); LYMPHOCYTES % 50.9 % (18.0-39.1); MEAN CORPUSCULAR HEMOGLOBIN 29.2 pg (28-32); MEAN CORPUSCULAR HGB CONC 34.2 g/dL (31-35); MEAN CORPUSCULAR VOLUME 85.4 fL (81-99); MONOCYTES # (AUTO) 0.3 (0.2-0.8); MONOCYTES % 7.4 % (4.4-11.3); NEUTROPHILS # (AUTO) 1.8 (2.1-6.9); NEUTROPHILS % 37.9 % (38.7-80.0); PLATELET COUNT 274 x10e3/uL (140-360); RED BLOOD COUNT 4.31 x10e6/uL (4.3-5.7); WHITE BLOOD COUNT 4.62 x10e3/uL (4.8-10.8)
[2024-06-25 06:07] LABS: ALBUMIN 3.5 g/dL (3.5-5.0); ANION GAP 13.7 mmol/L (8-16); BILIRUBIN,TOTAL 0.8 mg/dL (0.2-1.2); CALCIUM 9.5 mg/dL (8.4-10.2); CREATININE, SERUM 0.88 mg/dL (0.72-1.25); POTASSIUM 3.7 mmol/L (3.5-5.1); TOTAL PROTEIN 6.9 g/dL (6.5-8.1)
[2024-06-25] MEDS: PEG (High)/E-LYTE SOLN 4,000 ML BTL PO ONE (18:36)
[2024-06-25] MEDS: BISACODYL 10 MG SUPP PR ONE (18:36)
[2024-06-26] VITALS (8 sets, daily range): BP systolic 144–168; BP diastolic 86–101; PULSE 64–84; RESP 17–20; TEMP 97.4–98; O2SAT 95–100
[2024-06-26] MEDS: METFORMIN HCL 500 MG TAB PO SCH (08:00)
[2024-06-26 08:30] LABS: ANION GAP 13.8 mmol/L (8-16); CREATININE, SERUM 0.91 mg/dL (0.72-1.25); PHOSPHORUS 3.2 MG/DL (2.3-4.7); POTASSIUM 3.8 mmol/L (3.5-5.1)
[2024-06-26] MEDS: SENNA-S TABLET PO SCH (09:00)
[2024-06-26] MEDS: Morphine 4mg INJECTION 4 MG/ML INJ IV PRN (21:28)
[2024-06-27 07:48] VITALS: BP 152/87; PULSE 70; RESP 18; TEMP 97.3; O2SAT 98
[2024-06-27 08:09] VITALS: PULSE 70; RESP 18; TEMP 97.3; O2SAT 98
[2024-06-27 12:15] VITALS: BP 158/98; PULSE 73; RESP 18; TEMP 95.6; O2SAT 99
[2024-06-27 17:41] VITALS: BP 156/90; PULSE 81; RESP 18; TEMP 98.1; O2SAT 99
[2024-06-27 21:00] VITALS: BP 143/95; PULSE 85; RESP 18; TEMP 97.6; O2SAT 97
[2024-06-28] VITALS: BP 142/90; PULSE 73; RESP 18; TEMP 97; O2SAT 100
[2024-06-28] MEDS: CIPROFLOXACIN 500 MG TAB PO SCH (00:07)
[2024-06-28] MEDS: RIFAMPIN 300 MG CAP PO SCH (00:07)
[2024-06-28 09:29] VITALS: BP 165/91; PULSE 66; RESP 18; TEMP 97.6; O2SAT 99
[2024-06-28 09:31] LABS: BASOPHILS % 0.6 % (0.0-1.0); EOSINOPHILS # (AUTO) 0.2 (0.0-0.4); HEMATOCRIT 39.4 % (38.2-49.6); HEMOGLOBIN 13.3 g/dL (14.0-18.0); LYMPHOCYTES # (AUTO) 2.7 (1.0-3.2); LYMPHOCYTES % 37.5 % (18.0-39.1); MEAN CORPUSCULAR HEMOGLOBIN 29.6 pg (28-32); MEAN CORPUSCULAR HGB CONC 33.8 g/dL (31-35); MEAN CORPUSCULAR VOLUME 87.6 fL (81-99); MONOCYTES # (AUTO) 0.4 (0.2-0.8); MONOCYTES % 5.8 % (4.4-11.3); NEUTROPHILS # (AUTO) 3.8 (2.1-6.9); NEUTROPHILS % 52.8 % (38.7-80.0); PLATELET COUNT 319 x10e3/uL (140-360); RED CELL DISTRIBUTION WIDTH 12.4 % (11.7-14.4)
[2024-06-28 09:33] LABS: ANION GAP 14.9 mmol/L (8-16); CALCIUM 9.5 mg/dL (8.4-10.2); CREATININE, SERUM 0.91 mg/dL (0.72-1.25); POTASSIUM 3.9 mmol/L (3.5-5.1)
[2024-06-28 11:18] VITALS: BP 165/91; PULSE 66; RESP 18; TEMP 97.6; O2SAT 99
[2024-06-28 12:43] VITALS: BP 141/87; PULSE 71; RESP 18; TEMP 97.7; O2SAT 100
[2024-06-28 17:35] VITALS: BP 148/88; PULSE 95; RESP 20; TEMP 97.3; O2SAT 100
[2024-06-28] MEDS ORDERED: RIFAMPIN300 MG PO (17:38)
[2024-06-28] MEDS ORDERED: SENNA S TABLET1 EACH PO (17:38)
[2024-06-28] MEDS ORDERED: CIPRO500 MG PO (17:38)
== END 2024-06-28 18:11 | disposition home or self-care (01) | DRG 690 ==
LOC: ER 20:08 → ERHOLD 21:14 → MED/SURG2 22:12
PROVIDERS: ADMIT Internal Medicine; ATTEND Internal Medicine
DX: N39.0 Urinary tract infection, site not specified (principal); N20.2 Calculus of kidney with calculus of ureter; B95.7 Other staphylococcus as the cause of diseases classified elsewhere; I10 Essential (primary) hypertension; E11.9 Type 2 diabetes mellitus without complications; N23 Unspecified renal colic; M54.9 Dorsalgia, unspecified; K59.00 Constipation, unspecified; R53.81 Other malaise; E66.9 Obesity, unspecified; Z68.34 Body mass index [BMI] 34.0-34.9, adult; R11.2 Nausea with vomiting, unspecified
CPT/HCPCS: 36415; 74018; 80048; 80053; 83735; 84100; 85025; 99252; 99284; J1885; J2270; J2405